=== PATIENT | female | born 1975 | race Two or more races ===

== ENCOUNTER → 2016-12-08 | Outpatient (CLI) | payer OTHER | LOC: CIMAGING 15:35 | PROVIDERS: ATTEND Physical Medicine & Rehabilitation | DX: M16.0 Bilateral primary osteoarthritis of hip (principal); M85.30 Osteitis condensans, unspecified site | CPT/HCPCS: 73521-PO ==

== ENCOUNTER 2017-02-13 20:13 | Emergency (ER) | payer MEDICAID, OTHER ==
[2017-02-13 20:25] VITALS: RESP 16; TEMP 98.6
--- NOTE | 2017-02-13 20:34 | EDPHY ---
HPI/HX/ROS/PE/MDM Narrative: CHIEF COMPLAINT: Lower abdominal and pelvic pain HISTORY OF PRESENT ILLNESS: This patient is a 41 year old female who presents to the Emergency Department complaining of gradually worsening lower abdominal and pelvic pain beginning three days prior to arrival. She describes her pain as moderate pressure (severity 7/10) diffuse across her lower abdomen with associated centralized lower back pain. Her pain has been mildly alleviated with Ibuprofen and is exacerbated with even minor movements. She has a remote history of ovarian cysts and states that her pain is similar to hemorrhagic cysts. She denies vaginal discharge or bleeding, dysuria, hematuria, or urinary urgency. No vomiting, diarrhea, or subjective fever. REVIEW OF SYSTEMS: Aside from elements discussed in the HPI, a comprehensive 10-point review of systems was reviewed and is negative. PAST MEDICAL HISTORY: 1. Migraines 2. Remote history of ovarian cysts She has not been seen by an Business Leader since 2012 following the of her child. Periods are regularly absent (Mirena for control). Denies history of diabetes or hypertension. SOCIAL HISTORY: , lives in [facility]. PHYSICAL EXAM: VITAL SIGNS: Reviewed by me GENERAL: Overweight, well-developed, resting comfortably in no respiratory distress. HEENT: Atraumatic. Eyes: No icterus, no injection. Mouth: moist mucous membranes. No erythema or lesions. Neck: supple with no adenopathy. LUNGS: Clear to auscultation bilaterally, no wheezes, rhonchi or rales. CARDIAC: Regular rate and rhythm, no rubs, murmurs or gallops. ABDOMEN: Soft, moderate lower quadrant and suprapubic tenderness, nondistended, bowel sounds normal. BACK: Mild midline low back tenderness. No CVA tenderness. EXTREMITIES: No trauma. No edema. Range of motion is normal throughout. NEURO: Alert and oriented, grossly nonfocal. SKIN: Warm and dry, no rash. PSYCHIATRIC: Normal mentation, no agitation. Portions of this note were transcribed by a medical writer. I personally performed a history, physical exam, medical decision making, and confirmed accuracy of information the transcribed note. ED Course: This 41-year-old female with remote history of hemorrhagic ovarian cysts presents with complaints of diffuse pelvic and lower abdominal pain and bloating worsening over the past three days. She has moderate lower abdominal tenderness on exam. No additional significant findings. Will proceed with pelvic US, labs, and UA. IV established. 1L IV NS and 30mg IV Toradol administered. Labs obtained and are unremarkable. UA is negative for UTI. Ultrasound demonstrates no acute cysts, fluid in the pelvis, and no uterine abnormalities. The Mirena IUD is slightly low but is in the endometrium. I discussed the findings with the patient. We discussed importance of regular doses of nonsteroidal anti-inflammatories. I feel the patient is safe to be discharged from the emergency department with symptomatic control to follow up with her primary care physician at [facility]. She is in agreement with this plan. MDM: The differential diagnosis for the patient's abdominal pain was considered including but not limited to ovarian cyst, pelvic inflammatory disease, ovarian torsion, urinary tract infection, related complications, and appendicitis. - Data Points Imaging: Discussed imaging studies w/ freight caller Radiologist Laboratory Results: Laboratory Results 02/13/17 20:50 02/13/17 20:50 02/13/17 02/13/17 02/13/17 20:50 20:50 20:50 WBC RBC Hgb Hct MCV MCH MCHC RDW Plt Count MPV Neut % (Auto) Lymph % (Auto) Posey % (Auto) Eos % (Auto) Baso % (Auto) Nucleat RBC Rel Count Absolute Neuts (auto) Absolute Lymphs (auto) Absolute Monos (auto) Absolute Eos (auto) Absolute Basos (auto) Absolute Nucleated RBC Immature Gran % Immature Gran # Sodium 140 mEq/L mEq/L (134-144) Potassium 4.3 mEq/L mEq/L (3.5-5.2) Chloride 103 mEq/L mEq/L (97-110) Carbon Dioxide 27 mEq/l mEq/l (22-31) Anion Gap 10 mEq/L mEq/L (8-16) BUN 15 mg/dL mg/dL (7-23) Creatinine 0.9 mg/dL mg/dL (0.6-1.0) Estimated GFR > 60 Glucose 110 mg/dL H mg/dL (70-100) Calcium 9.4 mg/dL mg/dL (8.5-10.4) Beta HCG, Qual NEGATIVE Urine Color COLORLESS Urine Appearance CLEAR Urine pH 7.0 (5.0-7.5) Ur Specific [place] 1.003 (1.002-1.030) Urine Protein NEGATIVE (NEGATIVE) Urine Ketones NEGATIVE (NEGATIVE) Urine Blood 1+ H (NEGATIVE) Urine Nitrate NEGATIVE (NEGATIVE) Urine Bilirubin NEGATIVE (NEGATIVE) Urine Urobilinogen NEGATIVE EU EU (0.2-1.0) Ur Leukocyte Esterase NEGATIVE (NEGATIVE) Urine RBC 1-3 /hpf /hpf (0-3) Urine WBC 1-3 /hpf /hpf (0-3) Ur Epithelial Cells TRACE /lpf /lpf (NONE-1+) Urine Glucose NEGATIVE (NEGATIVE) 02/13/17 20:50 WBC 11.71 10^3/uL H 10^3/uL (3.80-9.50) RBC 4.30 10^6/uL 10^6/uL (4.18-5.33) Hgb 13.9 g/dL g/dL (12.6-16.3) Hct 42.4 % % (38.0-47.0) MCV 98.6 fL fL (81.5-99.8) MCH 32.3 pg pg (27.9-34.1) MCHC 32.8 g/dL g/dL (32.4-36.7) RDW 12.4 % % (11.5-15.2) Plt Count 315 10^3/uL 10^3/uL (150-400) MPV 10.3 fL fL (8.7-11.7) Neut % (Auto) 64.8 % % (39.3-74.2) Lymph % (Auto) 26.9 % % (15.0-45.0) Posey % (Auto) 6.1 % % (4.5-13.0) Eos % (Auto) 1.5 % % (0.6-7.6) Baso % (Auto) 0.3 % % (0.3-1.7) Nucleat RBC Rel Count 0.0 % % (0.0-0.2) Absolute Neuts (auto) 7.60 10^3/uL H 10^3/uL (1.70-6.50) Absolute Lymphs (auto) 3.15 10^3/uL H 10^3/uL (1.00-3.00) Absolute Monos (auto) 0.71 10^3/uL 10^3/uL (0.30-0.80) Absolute Eos (auto) 0.17 10^3/uL 10^3/uL (0.03-0.40) Absolute Basos (auto) 0.03 10^3/uL 10^3/uL (0.02-0.10) Absolute Nucleated RBC 0.00 10^3/uL 10^3/uL (0-0.01) Immature Gran % 0.4 % % (0.0-1.1) Immature Gran # 0.05 10^3/uL 10^3/uL (0.00-0.10) Sodium Potassium Chloride Carbon Dioxide Anion Gap BUN Creatinine Estimated GFR Glucose Calcium Beta HCG, Qual Urine Color Urine Appearance Urine pH Ur Specific [place] Urine Protein Urine Ketones Urine Blood Urine Nitrate Urine Bilirubin Urine Urobilinogen Ur Leukocyte Esterase Urine RBC Urine WBC Ur Epithelial Cells Urine Glucose Medications Given: Discontinued Medications Hydrocodone Bitart/Acetaminophen ([place] 5/325mg Prepack#6) 1 btl TAKEHOME EDNOW ONE Stop: 02/13/17 23:58 Last Admin: 02/14/17 00:05 Dose: 1 btl Hydromorphone HCl (Dilaudid) 0.5 mg IVP EDNOW ONE Stop: 02/13/17 23:44 Last Admin: 02/13/17 23:40 Dose: 0.5 mg Sodium Chloride (Ns) 1,000 mls @ 0 mls/hr IV ONCE ONE PRN Reason: Wide Open Stop: 02/13/17 20:47 Last Admin: 02/13/17 20:59 Dose: 1,000 mls Ketorolac Tromethamine (Toradol) 30 mg IVP EDNOW ONE Stop: 02/13/17 20:47 Last Admin: 02/13/17 20:59 Dose: 30 mg General Time Seen by Provider: 02/13/17 20:33 Initial Vital Signs: Initial Vital Signs Temperature (C) 37.0 C 02/13/17 20:21 Heart Rate 77 02/13/17 20:21 Respiratory Rate 16 02/13/17 20:21 Blood Pressure 118/82 H 02/13/17 20:21 O2 Sat (%) 99 02/13/17 20:21 O2 Delivery Mode Room Air Allergies/Adverse Reactions: shellfish derived Allergy (Verified 02/13/17 20:24) Home Medications: Medication Instructions Recorded Hydrocodone/APAP 5/325 [[place] 1 tab PO Q6H PRN #10 tab 02/13/17 5/325 (RX)] Departure - Departure Disposition: Home, Routine, Self-Care Clinical Impression: Pelvic pain, Bloating symptom Condition: Good Instructions: Hydrocodone/Acetaminophen (By mouth), Pelvic Pain in Women (ED) Additional Instructions: There is no evidence of an acute ovarian cyst, bleeding from the ovaries, torsion of the ovaries, or an acute issue with your uterus on tonight's evaluation. I recommend Ibuprofen (Motrin, Advil) or Naproxen Sodium (Aleve) for pain and anti-inflammatory effects. You may take either one, but do not take both. Your dose is: Ibuprofen 600 mg every 6-8 hours with food. OR Naproxen Sodium (Aleve) 220 mg every 12 hours. You have also been given a prescription for hydrocodone to use as needed for more severe pain. Please follow up tomorrow at [facility] for further evaluation. Return to the emergency department or seek care urgently if you develop fevers, worsening pain , vomiting, diarrhea, vaginal bleeding, or other concerns. Referrals: EMILY BURNETT [Other] - As per Instructions Prescriptions: Hydrocodone/APAP 5/325 [[place] 5/325 (RX)] 1 tab PO Q6H PRN #10 tab PRN Reason: Pain Report Scribed for: Carmina Osorio Report Scribed by: Leslee Jacobson Date of Report: 02/13/17 Time of Report: 20:34
[2017-02-13] MEDS ORDERED: NS 1,000 ML IV ONE (20:46)
[2017-02-13] MEDS ORDERED: KETOROLAC 30 MG/1 ML SDV IVP ONE (20:46)
[2017-02-13 21:08] LABS: % IMMATURE GRANULYOCYTES 0.4 % (0.0-1.1); ABSOLUTE IMMATURE GRANULOCYTES 0.05 10^3/uL (0.00-0.10); ADD DIFF? NO; ADD MORPH? NO; ADD SCAN? NO; ATYPICAL LYMPHOCYTE FLAG 10 (0-99); FRAGMENT RBC FLAG 0 (0-99); HEMATOCRIT 42.4 % (38.0-47.0); HEMOGLOBIN 13.9 g/dL (12.6-16.3); LEFT SHIFT FLG 0 (0-99); LIPEMIA HEMOLYSIS FLAG 80 (0-99); MEAN CELL HEMOGLOBIN 32.3 pg (27.9-34.1); MEAN CELL HEMOGLOBIN CONCENTR. 32.8 g/dL (32.4-36.7); MEAN CELL VOLUME 98.6 fL (81.5-99.8); MEAN PLATELET VOLUME 10.3 fL (8.7-11.7); PLATELET CLUMPS FLAG 10 (0-99); PLATELET COUNT 315 10^3/uL (150-400); RED CELL DISTRIBUTION WIDTH 12.4 % (11.5-15.2)
[2017-02-13 21:11] LABS: COLOR COLORLESS; LEUKOCYTE ESTERASE,URINE NEGATIVE (NEGATIVE); NITRITE,URINE NEGATIVE (NEGATIVE)
[2017-02-13 21:25] LABS: ANION GAP 10 mEq/L (8-16); CALCIUM 9.4 mg/dL (8.5-10.4); CARBON DIOXIDE 27 mEq/l (22-31); CHLORIDE 103 mEq/L (97-110); CREATININE 0.9 mg/dL (0.6-1.0); GLOMERULAR FILTRATION RATE > 60; GLUCOSE 110 mg/dL (70-100); POTASSIUM 4.3 mEq/L (3.5-5.2); SODIUM 140 mEq/L (134-144)
[2017-02-13] MEDS ORDERED: HYDROmorphONE/DILAUDID 1 MG/ML SYR ONE (23:39)
[2017-02-13] MEDS ORDERED: HYDROmorphONE/DILAUDID 1 MG/ML SYR IVP ONE (23:43)
[2017-02-13] MEDS ORDERED: HYDROCOD/APAP 5/325 PREPACK#6 BTL TAKEHOME ONE (23:57)
[2017-02-14 00:11] VITALS: BP 101/59; PULSE 82; O2SAT 95
== END 2017-02-14 00:11 | disposition home or self-care (01) ==
DX: R10.2 Pelvic and perineal pain (principal); R14.0 Abdominal distension (gaseous)
CPT/HCPCS: 96374; J1170; J1885